=== PATIENT | female | born 1940 | race Caucasian/White ===

== ENCOUNTER → 2016-11-13 | Outpatient (CLI) | payer MEDICARE, OTHER | LOC: HEART 5 08:22 | DX: R07.9 Chest pain, unspecified (principal); I37.1 Nonrheumatic pulmonary valve insufficiency; I07.1 Rheumatic tricuspid insufficiency; I34.0 Nonrheumatic mitral (valve) insufficiency | CPT/HCPCS: 78452; 93306; A9502; J2785 ==

== ENCOUNTER → 2016-12-20 | Outpatient (CLI) | payer MEDICARE, OTHER | LOC: RAD 09:36 | DX: M25.561 Pain in right knee (principal); M25.461 Effusion, right knee | CPT/HCPCS: 73560 ==

== ENCOUNTER 2020-12-20 13:07 | Emergency (ER) | payer OTHER ==
[~2020-12-20 13:07] MED LIST: ARICEPT10 MG PO; ASPIR-LOW81 MG PO; BUSPIRONE HCL7.5 MG PO; CALTRATE 600 +1 EACH PO; CELEXA20 MG PO; CENTRUM COMPLE1 EACH PO; COQ-10100 MG PO; IMDUR ER TAB 3030 MG PO; INDERAL TAB 2020 MG PO; LIPITOR TAB 2020 MG PO; NEURONTIN300 MG PO; NITROSTAT0.4 MG SL; PROPRANOLOL HCL20 MG PO; ZOFRAN4 MG PO
[2020-12-20 15:11] LABS: RED BLOOD COUNT 4.33 M/UL (4.00-5.10)
[2020-12-20 15:41] LABS: BUN/CREATININE RATIO 12 (0-10)
== END 2020-12-20 18:10 | disposition home or self-care (01) ==
LOC: ER1 13:07
PROVIDERS: Emergency Medicine
DX: E86.0 Dehydration (principal); Z20.822 Contact with and (suspected) exposure to COVID-19
CPT/HCPCS: 0240U; 71045; 80053; 81001; 83605; 83735; 84100; 85025; 87040; 87086; 93005; 96372; 99285; J3420; J7030

== ENCOUNTER 2020-12-28 13:25 | Emergency (ER) | payer OTHER ==
[2020-12-28 15:30] LABS: HEMOGLOBIN 13.8 gm/dl (12.3-15.3); RED BLOOD COUNT 4.61 M/UL (4.00-5.10); WHITE BLOOD COUNT 4.9 K/UL (4.5-11.0)
[2020-12-28 16:06] LABS: BUN/CREATININE RATIO 23 (0-10)
[2020-12-28] MEDS ORDERED: ZOFRAN ODT 4 MG4 MG PO (19:07)
[2020-12-28] MEDS ORDERED: FLAGYL500 MG PO (19:07)
[2020-12-28] MEDS ORDERED: OMNICEF 300 MG300 MG PO (19:07)
== END 2020-12-28 19:30 | disposition home or self-care (01) ==
LOC: ER1 13:25
PROVIDERS: Emergency Medicine
DX: K52.9 Noninfective gastroenteritis and colitis, unspecified (principal); N39.0 Urinary tract infection, site not specified; I10 Essential (primary) hypertension
CPT/HCPCS: 71045; 80053; 81001; 82550; 82553; 83605; 83690; 84484; 85025; 93005; 96374; 96375; 99285; J0696; J2405; Q9967

== ENCOUNTER 2021-05-29 11:52 | Emergency (ER) | payer OTHER ==
[~2021-05-29 11:52] MED LIST changes: +FLAGYL500 MG PO; +OMNICEF 300 MG300 MG PO; +ZOFRAN ODT 4 MG4 MG PO
== END 2021-05-29 13:54 | disposition home or self-care (01) ==
LOC: ER1 11:52
DX: S40.011A Contusion of right shoulder, initial encounter (principal); W01.0XXA Fall on same level from slipping, tripping and stumbling without subsequent striking against object, initial encounter
CPT/HCPCS: 73030; 73564; 99283

== ENCOUNTER 2021-08-31 03:47 | Emergency (ER) | payer MEDICARE, OTHER ==
[2021-08-31 04:38] LABS: HEMOGLOBIN 12.4 gm/dl (12.3-15.3); RED BLOOD COUNT 4.31 M/UL (4.00-5.10); WHITE BLOOD COUNT 3.4 K/UL (4.5-11.0)
[2021-08-31 04:57] LABS: BUN/CREATININE RATIO 19 (0-10)
[2021-08-31 07:55] LABS: BUN/CREATININE RATIO 18 (0-10)
[2021-08-31] MEDS ORDERED: ZOFRAN 4 MG TAB4 MG PO (09:08)
== END 2021-08-31 10:34 | disposition home or self-care (01) ==
LOC: ER1 03:47
PROVIDERS: Emergency Medicine; Student in an Organized Health Care Education/Training Program
DX: U07.1 COVID-19 (principal); I10 Essential (primary) hypertension
CPT/HCPCS: 36600; 71045; 80048; 80053; 81001; 82803; 83605; 83690; 85025; 93005; 99284; Q9967; U0002

== ENCOUNTER 2021-09-07 11:01 | Emergency (ER) | payer MEDICARE, OTHER ==
[~2021-09-07 11:01] MED LIST changes: +ZOFRAN 4 MG TAB4 MG PO
[2021-09-07 12:28] LABS: HEMOGLOBIN 13.8 gm/dl (12.3-15.3); RED BLOOD COUNT 4.7 M/UL (4.00-5.10); WHITE BLOOD COUNT 2.1 K/UL (4.5-11.0)
[2021-09-07 13:14] LABS: BUN/CREATININE RATIO 15 (0-10)
== END 2021-09-07 14:50 | disposition left against medical advice (07) ==
LOC: ER1 11:01
PROVIDERS: Physician Assistant
DX: U07.1 COVID-19 (principal); I10 Essential (primary) hypertension
CPT/HCPCS: 71045; 80053; 82550; 82553; 83874; 84484; 85025; 99283

== ENCOUNTER 2021-09-07 20:06 | Emergency (ER) | payer MEDICARE, OTHER ==
[2021-09-07 23:14] LABS: HEMOGLOBIN 14.3 gm/dl (12.3-15.3); RED BLOOD COUNT 4.85 M/UL (4.00-5.10)
[2021-09-07 23:21] LABS: WHITE BLOOD COUNT 3.6 K/UL (4.5-11.0)
[2021-09-07 23:44] LABS: BUN/CREATININE RATIO 13 (0-10)
== END 2021-09-08 04:15 | disposition home or self-care (01) ==
LOC: ER1 20:06
PROVIDERS: Physician Assistant
DX: U07.1 COVID-19 (principal); Z23 Encounter for immunization
CPT/HCPCS: 71045; 80053; 82550; 82553; 83605; 83874; 84484; 85025; 86140; 87040; 99284; M0247